=== PATIENT | female | born 1940 | race Caucasian/White ===

== ENCOUNTER 2016-07-15 12:26 | Observation (INO) | payer OTHER ==
[~2016-07-15 12:26] MED LIST: ACET500CAP PO; ALEVE220 MG PO; ALLEGRA180 PO; FISH OIL1200 MG PO; FLONASE NAS; HYDROCHLOROT12.5 MG PO; HYDROCHLOROT25 MG PO; L40 PO; LISINOPRIL40 MG PO; LUCENTIS; MOBIC7.5 PO; NORCO1 TA1 PO; NORV25 PO; PEP20 PO; PEPTO-BISMOL TA1 TAB PO; PRAVACHOL40 MG PO; PROTONIX PO; WELCHOL625 MG PO; ZESTORETIC PO; ZOCOR40 PO
[2016-07-15 13:53] LABS: BASOPHILS 1.2 %; BASOPHILS ABSOLUTE 0.08 10/3/uL (0.0-0.16); EOSINOPHILS 2.5 %; EOSINOPHILS ABSOLUTE 0.16 10/3/uL (0.0-0.53); HEMOGLOBIN 10.1 g/dL (12.0-16.0); IMMATURE GRANULOCYTES 0.2 %; IMMATURE GRANULOCYTES ABSOLUTE 0.01 10/3/uL (0.0-0.11); LYMPHOCYTES ABSOLUTE 1.55 10/3/uL (0.67-4.30); MEAN CORPUS HGB CONC 34.1 g/dL (32.0-36.0); MEAN CORPUSCULAR HEMOGLOB 31.5 pg (26.0-34.0); MEAN PLATELET VOLUME 9.6 fL (9.2-13.0); MONOCYTES 8.8 %; MONOCYTES ABSOLUTE 0.57 10/3/uL (0.21-1.20); NEUTROPHILS 63.3 %; NEUTROPHILS ABSOLUTE 4.09 10/3/uL (2.02-8.40); PLATELET COUNT 220 10/3/uL (150-400); WHITE BLOOD CELLS 6.5 10/3/uL (4.5-10.5)
[2016-07-15 13:54] LABS: HEMATOCRIT 29.6 % (36.0-48.0); MANUAL DIFF NO %; MEAN CORPUSCULAR VOLUME 92.2 fL (80-100); RED CELL COUNT 3.21 10/6/uL (4.0-5.6)
[2016-07-15 14:00] LABS: PARTIAL THROMBO TIME 27.3 SEC (22.5-37.2); PROTIME (NOT ORD) 13.5 SEC (12.0-14.5)
[2016-07-15 14:04] LABS: BUN (BLOOD UREA NITROGEN) 11 MG/DL (6-23); CALCIUM, SERUM 8.9 MG/DL (8.5-10.4); CHLORIDE, SERUM 98 MMOL/L (96-112); CO2 (CARBON DIOXIDE) 30 MMOL/L (24-34); GFR AFRICAN AMERICAN 73 ML/MIN (>=60); GFR NON AFRICAN AMERICAN 63 ML/MIN (>=60); GLUCOSE, SERUM 104 MG/DL (60-99); POTASSIUM, SERUM 3.9 MMOL/L (3.5-5.3); SODIUM, SERUM 133 MMOL/L (135-148)
[2016-10-09] MEDS ORDERED: HARD NAILS PO (15:05)
[2016-10-09] MEDS ORDERED: P10 PO (15:06)
[2016-10-09] MEDS ORDERED: REFRESH OPH SO0.3 ML OPH (15:07)
== END 2016-07-16 10:49 | disposition home or self-care (01) ==
LOC: M.OR 12:26 → RADHOLD 12:39 → SSU1 17:58 → M.OR 17:59 → SSU1 18:00
PROVIDERS: Internal Medicine Hematology & Oncology; Radiology Diagnostic Radiology
PROC: 0F500ZZ Destruction of Liver, Open Approach (ICD-10-PCS; principal; 2016-07-15 19:02)
DX: C22.1 Intrahepatic bile duct carcinoma (principal); I10 Essential (primary) hypertension; E78.5 Hyperlipidemia, unspecified; E78.00 Pure hypercholesterolemia, unspecified
CPT/HCPCS: 47382; 74170; 74177; 77013; 80048; 85025; 85610; 85730; 96374; 96375; A9270-GY; G0378; J1956; J2405; J2550; J3010; Q9967